=== PATIENT | female | born 2000 | race Two or more races ===

== ENCOUNTER 2024-07-19 02:17 | Emergency (ER) | payer OTHER ==
[~2024-07-19] VITALS: Ht 149.9 cm; Wt 69.2 kg
--- NOTE | 2024-07-19 02:50 | ED.PDOC ---
GI ASSESSMENT HPI Comments 24-year-old female presents to ER with complaints of abdominal pain x2 months. Patient reports she has been experiencing intermittent epigastric abdominal pain x2 months that got worse x1 day prompting her to come to ER for further evaluation. She rates her current pain a 10/10 to epigastric region of abdomen without radiation. Denies use of medications for current symptoms. States she has also been experiencing nausea/vomiting and diarrhea x1 day. Notes her current pain woke her up out of her sleep at 1:30 am and states she did eat a greasy hamburger before going to sleep. Denies fever, body aches, chills, hematemesis, shortness of breath, chest pain, right upper quadrant abdominal pain, bloody diarrhea or any further symptoms/complaints Chief Complaint: Abdominal Pain Time Seen by MD: 02:29 Primary Care Provider: MARIELA Reviewed Notes: Nurses Notes, Medications, Allergies Allergies: Coded Allergies: NO KNOWN ALLERGIES (Unverified , 07/19/24) Home Meds Active Scripts Acetaminophen (Acetaminophen) 500 Mg Tab, 500 MG PO Q4HPRN, #30 TAB 0 Refills Prov:GUS POPE 07/19/24 Omeprazole (Gnp Omeprazole) 20 Mg Tab, 1 TAB PO DAILY, #30 TAB 0 Refills Prov:GUS POPE 07/19/24 Ondansetron Odt 4MG Tab (ZOFRAN PO) 4 Mg Tb, 4 MG PO TIDP PRN, #14 TAB 0 Refills ODT TAB-DISSOLVE IN MOUTH, THEN SWALLOW Prov:GUS POPE 07/19/24 Information Source: Patient Mode of Arrival: Ambulatory Past Medical History PAST MEDICAL HISTORY: Denies Surgical History: Denies all surgeries Family History Family History: Unknown Social History Smoker: Non-Smoker Alcohol: Denies ETOH Use Drugs: Denies Drug Use Lives In: Home Constitutional: denies: chills, diaphoresis, fatigue, fever, malaise, sweats, weakness, others EENTM: denies: blurred vision, double vision, ear bleeding, ear discharge, ear drainage, ear pain, ear ringing, eye pain, eye redness, hearing loss, mouth pain, mouth swelling, nasal discharge, nose bleeding, nose congestion, nose pain, photophobia, tearing, throat pain, throat swelling, voice changes, others Respiratory: denies: cough, hemoptysis, orthopnea, SOB at rest, shortness of breath, SOB with excertion, stridor, wheezing, others Cardiovascular: denies: chest pain, dizzy spells, diaphoresis, Dyspnea on exertion, edema, irregular heart beat, left arm pain, lightheadedness, palpitations, PND, syncope, others Gastrointestinal: reports: others (As stated in HPI) Genitourinary: denies: abnormal vagina bleeding, burning, dyspareunia, dysuria, flank pain, frequency, hematuria, incontinence, pain, , vagina discharge, urgency, others Neurological: denies: dizziness, fainting, headache, left sided numbness, left sided weakness, numbness, paresthesia, pre-existing deficit, right sided numbness, right sided weakness, seizure, speech problems, tingling, tremors, weakness, others Musculoskeletal: denies: back pain, gout, joint pain, joint swelling, muscle pain, muscle stiffness, neck pain, others Integumetry: denies: bruises, change in color, change in hair/nails, dryness, laceration, lesions, lumps, rash, wounds, others Allergic/Immunocompromised: denies: Difficulty Healing, Frequent Infections, Hives, Itching, others Hematologic/Lymphatic: denies: anemia, blood clots, easy bleeding, easy bruising, swollen glands, others Endocrine: denies: excessive hunger, excessive sweating, excessive thirst, excessive urination, flushing, intolerance to cold, intolerance to heat, unexplained weight gain, unexplained weight loss, others Psychiatric: denies: anxiety, bipolar disorder, depression, hopeless, panic disorder, schizophrenia, sleepless, suicidal, others Physical Exam General Appearance: No Apparent Distress HEENT: Normal ENT Inspection, PERRL/EOMI, Pharynx Normal, TMs Normal Neck: Full Range of Motion, Non-Tender, Normal Respiratory: Chest Non-Tender, Lungs Clear, No Accessory Muscle Use, No Respiratory Distress, Normal Breath Sounds Cardiovascular: No Murmur, No Gallop, Regular Rate/Rhythm Breast Exam: Deferred Gastrointestinal: Epigastric (Slight TTP to epigastric region of abdomen. Negative Malik's sign. No TTP to right upper quadrant abdomen/other TTP to abdomen appreciated. No rebound/guarding noted. 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 Was a procedure done?: No Sedation Sedation?: No GI differential Dx Differential Diagnosis: Cholecystitis, GI hemorrhage, Ischemic Bowel, Trauma i ntraabdominal X-Ray, Labs, Meds, VS Vital Signs Date Time Temp Pulse Resp B/P (MAP) Pulse Ox O2 Delivery O2 Flow Rate FiO2 07/19/24 02:34 98.0 98 20 120/93 (102) 100 Lab Test 07/19/24 02:40 Range/Units White Blood Count 7.0 4.4-10.8 10^3/uL Red Blood Count 5.04 4.0-5.20 10^6/uL Hemoglobin 14.4 12.2-16.2 g/dL Hematocrit 41.3 36.0-46.0 % Mean Corpuscular Volume 81.8 80.0-100.0 fL Mean Corpuscular Hemoglobin 28.5 28.0-32.0 pg Mean Corpuscular Hemoglobin Concent 34.9 32.0-36.0 g/dL Red Cell Distribution Width 14.2 11.8-14.3 % Platelet Count 306 140-450 10^3/uL Mean Platelet Volume 8.0 6.9-10.8 fL Neutrophils (%) (Auto) 43.6 37.0-80.0 % Lymphocytes (%) (Auto) 45.6 10.0-50.0 % Monocytes (%) (Auto) 8.1 0.0-12.0 % Eosinophils (%) (Auto) 2.2 0.0-7.0 % Basophils (%) (Auto) 0.5 0.0-2.0 % Neutrophils # (Auto) 3.1 1.6-8.6 10 ^3/uL Lymphocytes # (Auto) 3.2 0.4-5.4 10 ^3/uL Monocytes # (Auto) 0.6 0-1.3 10 ^3/uL Eosinophils # (Auto) 0.2 0-0.8 10 ^3/uL Basophils # (Auto) 0 0-0.2 10 ^3/uL Nucleated Red Blood Cells 0.1 % Sodium Level 140 136-145 mmol/L Potassium Level 4.0 3.5-5.1 mmol/L Chloride Level 104 98-107 mmol/L Carbon Dioxide Level 26 20-31 mmol/L Anion Gap 10 5-15 Blood Urea Nitrogen 16 9-23 mg/dL Creatinine 0.75 0.550-1.02 mg/dL Glomerular Filtration Rate Calc 114 >90 mL/min BUN/Creatinine Ratio 21.3 H 10.0-20.0 Serum Glucose 98 74-106 mg/dL Calcium Level 10.3 8.7-10.4 mg/dL Total Bilirubin 0.4 0.2-1.0 mg/dL Aspartate Amino Transferase (AST) 69 H 13-40 U/L Alanine Aminotransferase (ALT) 41 H 7-40 U/L Alkaline Phosphatase 102 46-116 U/L Total Protein 7.7 5.7-8.2 g/dL Albumin 4.7 3.2-4.8 g/dL Lipase 50 12-53 U/L Beta HCG, Quantitative < 0.0 L 1.5-4.2 mIU/mL Current Medications Medications (Trade) Dose Ordered Sig/Parveen Route Start Time Stop Time Status Last Admin Sodium Chloride 1,000 ml @ 1,000 mls/hr Q1H ONCE IV 07/19/24 02:45 07/19/24 03:44 DC 07/19/24 04:50 Al Hydrox/Mg Hydrox/Simethicone (Maalox Plus) 30 ml ONCE ONCE PO 07/19/24 02:45 07/19/24 02:46 DC 07/19/24 04:50 Belladonna Alkaloids/ Phenobarbital ( Elixir) 10 ml ONCE ONCE PO 07/19/24 02:45 07/19/24 02:46 DC 07/19/24 04:50 Lidocaine HCl (Xylocaine 2% Viscous) 10 ml ONCE ONCE PO 07/19/24 02:45 07/19/24 02:46 DC 07/19/24 04:50 Pantoprazole Sodium (Protonix Tablet) 40 mg ONCE ONCE PO 07/19/24 05:15 07/19/24 05:17 DC 07/19/24 05:21 PATIENT: SETH VAZQUEZ ACCT: [id number] UNIT: [id number] : 2000 LOC: ER ROOM / BED: / AGE / SEX: 24 / F ADM STATUS: REG ER SERVICE [id number] ORDERING PHYSICIAN: GUS POPE PROCEDURE(s): ABPL - CT AB PEL WO CON-NO ORAL OR IV REASON: ABDOMINAL PAIN ORDER NUMBER(s): [id number], ACCESSION NUMBER(s): [id number] Exam: CT CT AB PEL WO CON-NO ORAL OR IV History: ABDOMINAL PAIN Comparison Study: None available at time of dictation. TECHNIQUE: Noncontrast CT imaging of the abdomen and pelvis was obtained. The data set was subsequently reconstructed into axial images. Images were reviewed on a work station using a combination of axial and multiplanar using a variety of window levels and settings. All CT scans at this medical facility are performed using dose modulation techniques as appropriate to a performed exam including the following: Automated exposure control was utilized; adjustment of the MA and/or KV according to patient size; and use of iterative reconstruction technique. Radiation Dose Information: CT Dose: CTDI volume is 7.71 mGy. Dose-length product is 402.51 mGy*cm FINDINGS: Imaged portions of the lung bases appear unremarkable. The liver, spleen, pancreas and adrenal glands appear unremarkable. The gallbladder is mildly prominent without pericholecystic fluid or gallbladder wall thickening. No evidence of bowel obstruction or focal bowel wall thickening. The appendix appears normal. Fullness in the pelvis likely relates to ovarian follicular change. No free pelvic fluid. IMPRESSION: 1. No acute abnormality in the abdomen or pelvis. ATED BY: DAYSI KHANNA MD DICTATED DATE/TIME: 07/19/24427 SIGNED BY: DAYSI KHANNA MD SIGNED DATE/TIME: 07/19/24427 CC: CBC REVIEWED-NORMAL BMP REVIEWED-AST 69, ALT 41 BETA HCG REVIEWED- <0.0 LIPASE REVIEWED-NORMAL CT ABDOMEN/PELVIS WITHOUT CONTRAST REVIEWED HEP-LOCK IV ORDERED NS 1 L IV ORDERED GI COCKTAIL ORDERED PROTONIX PO ORDERED PATIENT REPORTED IMPROVEMENT IN SYMPTOMS, TOLERATING P.O. INTAKE WELL AND IN NO DISTRESS PRIOR TO DISCHARGE DIET EDUCATION DISCUSSED ADVISED TO FOLLOW UP IN 12 HOURS ADVISED TO FOLLOW UP WITH PCP IN 1-2 DAYS PATIENT VERBALIZED UNDERSTANDING AND AGREEABLE WITH CURRENT PLAN OF CARE ADVISED TO RETURN TO ER IMMEDIATELY IF SYMPTOMS WORSEN Time of 1ST Reevaluation: 02:50 Reevaluation 1ST: N/A Time of 2ND Reevaluation: 05:15 Reevaluation 2ND: Improved Patient Education/Counseling: Diagnosis, Treatment, Prognosis, Need For Follow Up Family Education/Counseling: Diagnosis, Treatment, Prognosis, Need For Follow Up Departure 1 Departure Time of Disposition: 05:12 Impression: Primary Impression: Gastritis Qualified Codes: K29.00 - Acute gastritis without bleeding Disposition: HOME / SELF CARE / HOMELESS Condition: Stable e-Prescriptions Acetaminophen (Acetaminophen) 500 Mg Tab 500 MG PO Q4HPRN, #30 TAB 0 Refills Prov: GUS PPOE 07/19/24 Omeprazole (Gnp Omeprazole) 20 Mg Tab 1 TAB PO DAILY, #30 TAB 0 Refills Prov: GUS POPE 07/19/24 Ondansetron Odt 4MG Tab (ZOFRAN PO) 4 Mg Tb 4 MG PO TIDP PRN, #14 TAB 0 Refills ODT TAB-DISSOLVE IN MOUTH, THEN SWALLOW Prov: GUS POPE 07/19/24 Discharged With: Self Critical Care Note Critical Care Time?: No Stability Stability form required: No Heart Score Heart Score: Heart Score Response (Comments) Value History N/A 0 EKG N/A 0 Age N/A 0 Risk Factors N/A 0 Troponin N/A 0 Total 0 GUS POPE Jul 19, 2024 02:50
[2024-07-19 02:52] LABS: Basophils # (auto) 0 10 ^3/uL (0-0.2); Basophils % (auto) 0.5 % (0.0-2.0); Eosinophils # (auto) 0.2 10 ^3/uL (0-0.8); Eosinophils % (auto) 2.2 % (0.0-7.0); Hematocrit 41.3 % (36.0-46.0); Hemoglobin 14.4 g/dL (12.2-16.2); Lymphocytes # (auto) 3.2 10 ^3/uL (0.4-5.4); Lymphocytes % (auto) 45.6 % (10.0-50.0); Mean Corpuscular Hemoglobin 28.5 pg (28.0-32.0); Mean Corpuscular Hgb Conc. 34.9 g/dL (32.0-36.0); Mean Corpuscular Volume 81.8 fL (80.0-100.0); Monocytes # (auto) 0.6 10 ^3/uL (0-1.3); Monocytes % (auto) 8.1 % (0.0-12.0); Neutrophils # (auto) 3.1 10 ^3/uL (1.6-8.6); Neutrophils % (auto) 43.6 % (37.0-80.0); Nucleated Red Blood Cells % 0.1 %; Platelet Count (auto) 306 10^3/uL (140-450); Red Blood Cells 5.04 10^6/uL (4.0-5.20); Red Cell Distribution Width 14.2 % (11.8-14.3)
[2024-07-19 03:13] LABS: Albumin 4.7 g/dL (3.2-4.8); Alkaline Phosphatase 102 U/L (46-116); Anion Gap 10 (5-15); BUN/Creatinine Ratio 21.3 (10.0-20.0); Bilirubin, Total 0.4 mg/dL (0.2-1.0); Blood Urea Nitrogen 16 mg/dL (9-23); Calcium 10.3 mg/dL (8.7-10.4); Carbon Dioxide 26 mmol/L (20-31); Chloride 104 mmol/L (98-107); Glucose 98 mg/dL (74-106); Lipase 50 U/L (12-53); Sodium 140 mmol/L (136-145); Total Protein 7.7 g/dL (5.7-8.2)
[2024-07-19 03:32] LABS: Alanine Aminotransferase 41 U/L (7-40); Aspartate Aminotransferase 69 U/L (13-40)
--- NOTE | 2024-07-19 04:29 | DVH ---
Exam: CT CT AB PEL WO CON-NO ORAL OR IV History: ABDOMINAL PAIN Comparison Study: None available at time of dictation. TECHNIQUE: Noncontrast CT imaging of the abdomen and pelvis was obtained. The data set was subsequent ly reconstructed into axial images. Images were reviewed on a work station using a combination of axi al and multiplanar using a variety of window levels and settings. All CT scans at this medical facility are performed using dose modulation techniques as appropriate t o a performed exam including the following: Automated exposure control was utilized; adjustment of th e MA and/or KV according to patient size; and use of iterative reconstruction technique. Radiation Dose Information: CT Dose: CTDI volume is 7.71 mGy. Dose-length product is 402.51 mGy*cm FINDINGS: Imaged portions of the lung bases appear unremarkable. The liver, spleen, pancreas and adrenal glands appear unremarkable. The gallbladder is mildly promine nt without pericholecystic fluid or gallbladder wall thickening. No evidence of bowel obstruction or focal bowel wall thickening. The appendix appears normal. Fullnes s in the pelvis likely relates to ovarian follicular change. No free pelvic fluid. IMPRESSION: 1. No acute abnormality in the abdomen or pelvis.
[2024-07-19] MEDS ORDERED: ACET500T58 PO (04:36)
[2024-07-19] MEDS ORDERED: ZOFR4T PO (04:36)
[2024-07-19] MEDS ORDERED: OMEP20TA PO (04:36)
[2024-07-19] MEDS: DONNATAL 5ml ORAL Elix (BELLADONNA ALK-PHENOBARB) PO ONE (04:50)
[2024-07-19] MEDS: SODIUM CHLORIDE 0.9% 1,000 ML IV ONE (04:50)
[2024-07-19] MEDS: MAALOX PLUS or MAALOX 30 ML PO ONE (04:50)
[2024-07-19] MEDS: LIDOCAINE VISCOUS 2% 15ML UD PO ONE (04:50)
[2024-07-19] MEDS: PANTOPRAZOLE 40 MG TAB PO ONE (05:21)
[2024-07-19 05:42] VITALS: BP 106/69; PULSE 90; RESP 20; TEMP 98; O2SAT 99
== END 2024-07-19 05:52 | disposition home or self-care (01) ==
LOC: ER 02:17
DX: K29.70 Gastritis, unspecified, without bleeding (principal); Z79.899 Other long term (current) drug therapy
CPT/HCPCS: 36415; 74176; 80053; 83690; 84702; 85025